=== PATIENT | male | born 1965 | race African-American/Black ===

== ENCOUNTER 2019-05-02 20:30 | Emergency (ER) | payer MEDICAID ==
[~2019-05-02] VITALS: Ht 180.3 cm; Wt 104.0 kg
[2019-05-02 20:35] VITALS: BP 149/95
[2019-05-02] MEDS ORDERED: PREDNISONE 20MG TABLET PO STA (21:16)
[2019-05-02] MEDS ORDERED: ALBUTEROL (0.083%) 2.5MG/3ML NEB HHN STA (21:16)
[2019-05-02] MEDS ORDERED: IPRATROPIUM BROMIDE (0.02%) 0.5MG/2.5ML NEB HHN STA (21:16)
[2019-05-02 22:23] LABS: BASOPHILS % 0.4 % (0.0-2.0); EOSINOPHILS % 0.5 % (0.0-5.0); HEMATOCRIT. 47.9 % (42.0-52.0); HEMOGLOBIN. 15.7 g/dL (14.0-18.0); LYMPHOCYTES % 13.6 % (20.0-50.0); MEAN CORPUSCULAR HEMOGLOBIN 28.3 pg (28.0-32.0); MEAN CORPUSCULAR VOLUME 86.4 fL (80.0-94.0); MEAN PLATELET VOLUME 9.4 fl (7.4-10.4); MONOCYTES % 11.8 % (2.0-8.0); NEUTROPHILS % 73.7 % (40.0-76.0); PLATELET 138 x1000/uL (130-400); RED BLOOD CELL COUNT 5.55 mill/uL (4.7-6.1); RED CELL DISTRIBUTION WIDTH 12.9 % (11.6-14.6)
[2019-05-02 22:27] LABS: CHLORIDE 101 mEq/L (98-107)
[2019-05-02] MEDS ORDERED: INSULIN LISPRO 100 UNITS/ML SUBCUT ONE (23:15)
== END 2019-05-02 23:25 | disposition home or self-care (01) ==
LOC: ER 20:30
DX: J20.9 Acute bronchitis, unspecified (principal); J18.9 Pneumonia, unspecified organism; E11.65 Type 2 diabetes mellitus with hyperglycemia; R79.89 Other specified abnormal findings of blood chemistry; I10 Essential (primary) hypertension; Z79.4 Long term (current) use of insulin
CPT/HCPCS: 36415; 71045; 80053; 83880; 84484; 85025; 93005; 94640; 96372; 99284; J1815; J7512; J7611; Z7610

== ENCOUNTER 2022-08-31 01:02 | Emergency (ER) | payer MEDICAID ==
[~2022-08-31] VITALS: Ht 177.8 cm; Wt 113.0 kg
[2022-08-31] MEDS ORDERED: ENALAPRIL 2.5MG/2ML VIAL 2ML IV ONE (03:00)
[2022-08-31] MEDS ORDERED: ENALAPRIL 1.25MG/ML VIAL 1ML IV NR (03:15)
[2022-08-31] MEDS ORDERED: PREDNISONE 20MG TABLET PO STA (03:16)
[2022-08-31] MEDS ORDERED: IPRATROPIUM BROMIDE (0.02%) 0.5MG/2.5ML NEB HHN STA (03:16)
[2022-08-31] MEDS ORDERED: ALBUTEROL (0.083%) 2.5MG/3ML NEB HHN STA (03:16)
[2022-08-31 03:24] LABS: BASOPHILS % 0.6 % (0.0-2.0); EOSINOPHILS % 1.6 % (0.0-5.0); HEMATOCRIT. 48.2 % (42.0-52.0); HEMOGLOBIN. 15.9 g/dL (14.0-18.0); LYMPHOCYTES % 22.6 % (20.0-50.0); MEAN CORPUSCULAR HEMOGLOBIN 28.6 pg (28.0-32.0); MEAN CORPUSCULAR VOLUME 86.5 fL (80.0-94.0); MEAN PLATELET VOLUME 9.9 fl (7.4-10.4); MONOCYTES % 8.8 % (2.0-8.0); NEUTROPHILS % 66.4 % (40.0-76.0); PLATELET 150 x1000/uL (130-400); RED BLOOD CELL COUNT 5.57 mill/uL (4.7-6.1); RED CELL DISTRIBUTION WIDTH 13.1 % (11.6-14.6)
[2022-08-31 03:28] LABS: CHLORIDE 103 mEq/L (98-107)
[2022-08-31] MEDS ORDERED: LABETALOL 5MG/ML SYR 20 MG/4 ML SYRINGE IV ONE (04:45)
[2022-08-31 04:50] VITALS: BP 181/103
[2022-08-31] MEDS ORDERED: DOXY100T2 MT (05:34)
[2022-08-31] MEDS ORDERED: PRED10TA MT (05:34)
== END 2022-08-31 06:13 | disposition home or self-care (01) ==
LOC: ER 01:02
DX: I10 Essential (primary) hypertension (principal); J45.909 Unspecified asthma, uncomplicated
CPT/HCPCS: 36415; 71045; 80053; 83880; 84484; 85025; 94640; 96374; 96375; 99284; J3490; J7512; Z7610

== ENCOUNTER 2024-05-03 22:07 | Emergency (ER) | payer MEDICAID ==
[~2024-05-03] VITALS: Ht 177.8 cm; Wt 137.0 kg
[~2024-05-03 22:07] MED LIST: DOXY100T2 MT; PRED10TA MT
[2024-05-03 23:21] VITALS: BP 172/108; TEMP 36.66960; O2SAT 95
[2024-05-03] MEDS: METHYLPREDNISOLONE SOD SUCC 125MG/2ML (ACT-O-VIAL) IV STA (23:36)
[2024-05-03] MEDS: ENALAPRIL 1.25MG/ML VIAL 1ML IV NR (23:37)
[2024-05-03] MEDS: METHYLPREDNISOLONE SOD SUCC 125MG/2ML (ACT-O-VIAL) IV NR (23:37)
[2024-05-03] MEDS: ENALAPRIL 2.5MG/2ML VIAL 2ML IV ONE (23:37)
[2024-05-03] MEDS: ALBUTEROL (0.083%) 2.5MG/3ML NEB HHN STA (23:48)
[2024-05-03] MEDS: IPRATROPIUM BROMIDE (0.02%) 0.5MG/2.5ML NEB HHN STA (23:49)
[2024-05-03 23:50] VITALS: PULSE 96; RESP 20; O2SAT 97
[2024-05-03] MEDS: IPRATROPIUM BROMIDE (0.02%) 0.5MG/2.5ML NEB HHN NR (23:50)
[2024-05-03] MEDS: ALBUTEROL (0.083%) 2.5MG/3ML NEB HHN NR (23:50)
[2024-05-03 23:51] LABS: BASOPHILS % 0.2 % (0.0-2.0); EOSINOPHILS % 1.1 % (0.0-5.0); HEMATOCRIT. 46.8 % (42.0-52.0); HEMOGLOBIN. 14.9 g/dL (14.0-18.0); LYMPHOCYTES % 11.7 % (20.0-50.0); MEAN CORPUSCULAR HEMOGLOBIN 28.4 pg (28.0-32.0); MEAN CORPUSCULAR HGB CONC 31.7 g/dL (31.0-37.0); MEAN CORPUSCULAR VOLUME 89.5 fL (80.0-94.0); MEAN PLATELET VOLUME 9.2 fl (7.4-10.4); MONOCYTES % 8.4 % (2.0-8.0); NEUTROPHILS % 78.6 % (40.0-76.0); PLATELET 169 x1000/uL (130-400); RED BLOOD CELL COUNT 5.23 mill/uL (4.7-6.1); RED CELL DISTRIBUTION WIDTH 13.2 % (11.6-14.6); WHITE BLOOD COUNT 6.5 x1000/uL (4.5-11.0)
[2024-05-03 23:59] LABS: CALCIUM 9.2 mg/dL (8.7-10.4); CARBON DIOXIDE 23 mEq/L (21-32)
[2024-05-04 00:04] LABS: CREATININE 0.9 mg/dL (0.6-1.3); UREA NITROGEN BLOOD 13 mg/dL (9-23)
[2024-05-04 00:05] LABS: TROPONIN I HIGH SENSITIVITY 27 ng/L (3.0-53)
[2024-05-04 00:14] LABS: CHLORIDE 110 mEq/L (98-107); POTASSIUM 3.3 mEq/L (3.5-5.1); SODIUM 140 mEq/L (136-145)
[2024-05-04 00:55] LABS: GLUCOSE 176 mg/dL (70-105)
[2024-05-04] MEDS ORDERED: ALBU90AE INH (02:00)
[2024-05-04] MEDS ORDERED: FURO20TA4 MT (02:00)
[2024-05-04] MEDS ORDERED: P50 MT (02:00)
[2024-05-04] MEDS ORDERED: AZIT250T12 MT (02:00)
[2024-05-04] MEDS ORDERED: POTA-354 MT ×2 (02:00)
== END 2024-05-04 02:11 | disposition left against medical advice (07) ==
LOC: ER 22:07
DX: R06.02 Shortness of breath (principal); J45.909 Unspecified asthma, uncomplicated; E11.9 Type 2 diabetes mellitus without complications; I10 Essential (primary) hypertension; Z79.899 Other long term (current) drug therapy
CPT/HCPCS: 80048; 83880; 85025; 84484; 36415; 71045; 93005; 94644; 96374; 96375; 99285; J3490 ×2; J2919; Z7610; 94640